=== PATIENT | male | born 1945 | race Caucasian/White ===

== ENCOUNTER → 2017-01-07 | Outpatient (CLI) | payer MEDICARE, OTHER ==
[~2017-01-07] MED LIST: ALTACE5 MG PO; ATIVAN 1 MG1 MG PO; CIPRO500 MG PO; COUMADIN ** IA5 MG PO; DITROPAN XL5 MG PO; DULCOLAX10 MG R; HYDRODIURIL12.5 MG PO; IMODIUM2 MG PO; LEVAQUIN 250 M250 MG PO; LOPRESSOR25 MG PO; MILK OF MA400 MG/5 M PO; NORCO 5-325 MG1 TAB PO; NORVASC5 MG PO; PRAVACHOL40 MG PO; PROTONIX20 MG PO; TRICOR54 MG PO; TYLENOL325 MG PO
[2017-01-07 07:18] LABS: PROTIME 36.7 SECONDS (9.6-11.1)
[2017-01-07 07:20] LABS: INR - (THERAPEUTIC) 3.2 (0.9-1.1)
== END ==
LOC: LJOHN2 07:01
PROVIDERS: Family Medicine
DX: I48.91 Unspecified atrial fibrillation (principal)

== ENCOUNTER → 2017-01-21 | Outpatient (CLI) | payer MEDICARE, OTHER ==
[2017-01-21 07:00] LABS: INR - (THERAPEUTIC) 2.3 (0.9-1.1); PROTIME 26.4 SECONDS (9.6-11.1)
== END | disposition disaster alternative care site (69) ==
LOC: LJOHN2 06:42
PROVIDERS: Family Medicine
DX: I48.91 Unspecified atrial fibrillation (principal)

== ENCOUNTER → 2017-02-11 | Outpatient (CLI) | payer MEDICARE, OTHER ==
[2017-02-11 10:56] LABS: INR - (THERAPEUTIC) 2.34 (0.92-1.07); PROTIME 24.8 SECONDS (9.8-11.4)
== END ==
LOC: LJOHN2 10:47
PROVIDERS: Family Medicine
DX: I48.91 Unspecified atrial fibrillation (principal); I10 Essential (primary) hypertension; I73.9 Peripheral vascular disease, unspecified

== ENCOUNTER → 2017-03-12 | Outpatient (CLI) | payer MEDICARE, OTHER ==
[2017-03-12 06:58] LABS: INR - (THERAPEUTIC) 3.47 (0.92-1.07); PROTIME 36.9 SECONDS (9.8-11.4)
== END | disposition disaster alternative care site (69) ==
LOC: LJOHN2 06:40
PROVIDERS: Family Medicine
DX: I48.91 Unspecified atrial fibrillation (principal); I67.89 Other cerebrovascular disease

== ENCOUNTER → 2017-03-13 | Outpatient (CLI) | payer MEDICARE, OTHER ==
[2017-03-13 10:32] LABS: INR - (THERAPEUTIC) 2.9 (0.92-1.07); PROTIME 30.8 SECONDS (9.8-11.4)
== END | disposition disaster alternative care site (69) ==
LOC: LJOHN2 10:23
PROVIDERS: Family Medicine
DX: I48.91 Unspecified atrial fibrillation (principal)

== ENCOUNTER → 2017-03-19 | Outpatient (CLI) | payer MEDICARE, OTHER ==
[2017-03-19 10:26] LABS: INR - (THERAPEUTIC) 2.84 (0.92-1.07); PROTIME 30.1 SECONDS (9.8-11.4)
== END | disposition disaster alternative care site (69) ==
LOC: LJOHN2 10:16
PROVIDERS: Family Medicine
DX: I71.4 Abdominal aortic aneurysm, without rupture (principal); I48.91 Unspecified atrial fibrillation

== ENCOUNTER → 2017-04-16 | Outpatient (CLI) | payer MEDICARE, OTHER ==
[2017-04-16 10:28] LABS: INR - (THERAPEUTIC) 4.28 (0.92-1.07); PROTIME 45.6 SECONDS (9.8-11.4)
== END | disposition disaster alternative care site (69) ==
LOC: LJOHN2 10:15
PROVIDERS: Family Medicine
DX: I10 Essential (primary) hypertension (principal); I48.91 Unspecified atrial fibrillation

== ENCOUNTER → 2017-04-23 | Outpatient (CLI) | payer MEDICARE, OTHER ==
[2017-04-23 07:32] LABS: INR - (THERAPEUTIC) 3.07 (0.92-1.07); PROTIME 32.6 SECONDS (9.8-11.4)
== END | disposition disaster alternative care site (69) ==
LOC: LJOHN2 07:19
PROVIDERS: Family Medicine
DX: I48.91 Unspecified atrial fibrillation (principal)

== ENCOUNTER → 2017-05-26 | Outpatient (CLI) | payer MEDICARE, OTHER ==
[2017-05-26 13:01] LABS: INR - (THERAPEUTIC) 2.24 (0.92-1.07); PROTIME 23.7 SECONDS (9.8-11.4)
== END ==
LOC: LJOHN2 12:43
PROVIDERS: Family Medicine
DX: I48.91 Unspecified atrial fibrillation (principal)

== ENCOUNTER → 2017-06-22 | Outpatient (CLI) | payer MEDICARE, OTHER ==
[2017-06-22 10:29] LABS: INR - (THERAPEUTIC) 1.33 (0.92-1.07)
== END ==
LOC: LJOHN2 07:27
PROVIDERS: Family Medicine
DX: I48.91 Unspecified atrial fibrillation (principal)

== ENCOUNTER → 2017-06-23 | Outpatient (CLI) | payer MEDICARE, OTHER ==
[2017-06-23 07:34] LABS: ALBUMIN 3.3 gm/dL (3.5-5.0); ANION GAP 9.1 (10.0-19.0); CREATININE 1.3 mg/dL (0.6-1.3); POTASSIUM 4.1 mMol/L (3.7-5.1); TOTAL BILIRUBIN 0.5 mg/dL (0.0-1.5); TOTAL PROTEIN 6.5 g/dL (6.0-8.4)
== END ==
LOC: LJOHN2 07:09
PROVIDERS: Family Medicine
DX: I48.91 Unspecified atrial fibrillation (principal); E78.5 Hyperlipidemia, unspecified; I73.9 Peripheral vascular disease, unspecified